=== PATIENT | female | born 1945 | race Caucasian/White ===

== ENCOUNTER 2019-12-19 08:26 | Outpatient (REF) | payer MEDICARE, OTHER, SELFPAY | END 2019-12-19 08:27 | disposition home or self-care (01) | LOC: HO.LAB 08:26 | PROVIDERS: PCP Internal Medicine; Visit Provider Internal Medicine | DX: Z20.828 Contact with and (suspected) exposure to other viral communicable diseases (principal) | CPT/HCPCS: U0003 ==

== ENCOUNTER 2020-01-06 07:11 | Outpatient (REF) | payer MEDICARE, OTHER, SELFPAY ==
[2020-01-06 07:38] LABS: MANUAL DIFF FLAG NO
[2020-01-06 07:40] LABS: Basophils Percent Auto 0.5 % (0-2); Eosinophils Absolute Auto 0.1 X10*3/uL (0.0-0.4); Hematocrit 36.8 % (37-47); Hemoglobin 12.1 g/dl (12.0-16.0); Imm Gran Abs Auto 0.02 X10*3/uL (0.00-0.03); Imm Gran Pct Auto 0.3 % (0.0-0.4); Lymphocytes Absolute Auto 1.8 X10*3/uL (1.2-4.9); Lymphocytes Percent Auto 28.5 % (20-40); Mean Corpuscular HGB Conc 32.9 g/dl (31.0-35.0); Mean Corpuscular Hemoglobin 31.1 pg (27.0-33.0); Mean Corpuscular Volume 94.6 fL (80-98); Mean Platelet Volume 8.8 fL (9.4-12.3); Monocytes Absolute Auto 0.5 X10*3/uL (0.1-1.2); Monocytes Percent Auto 7.6 % (2-11); Neutrophils Absolute Auto 3.9 X10*3/uL (2.0-8.3); Neutrophils Percent Auto 62.1 % (45-73); Platelet Count 248 X10*3/uL (160-400); Red Blood Count 3.89 X10*6/uL (4.20-5.50); Red Cell Distribution Width 12.8 % (11.0-16.0); White Blood Count 6.3 X10*3/uL (4.8-10.8)
[2020-01-06 08:02] LABS: Alanine Aminotransferase 12 U/L (0-31); Albumin Level 4.3 g/dL (3.5-5.0); Alkaline Phosphatase 72 U/L (39-117); Anion Gap 12 (12-20); Aspartate Amino Transferase 17 U/L (5-31); Bilirubin Total 0.6 mg/dL (0.0-1.0); Blood Urea Nitrogen 15 mg/dL (9-16); Calcium 9.3 mg/dL (8.4-10.2); Carbon Dioxide 29 mmol/L (22-29); Chloride 104 mmol/L (96-108); Cholesterol 185 mg/dL; Estimated Glomerular Filt Rate > 60; Glucose Fasting 95 mg/dL (60-99); HDL Cholesterol 45 mg/dL; LDL Cholesterol Calculated 105 mg/dl; Potassium 4.6 mmol/l (3.3-5.1); Sodium 140 mmol/L (135-145); Total Protein 7.1 g/dL (6.5-8.0); Triglycerides 175 mg/dL
[2020-01-06 08:25] LABS: Thyroid Stimulating Hormone 2.14 uIU/mL (0.32-4.0); Vitamin D 25-OH Total 43.5 ng/mL (>30)
[2020-01-06 10:39] LABS: Glucose Urine UA NEG (NEG); Leukocyte Esterase Urine TRACE (NEG); Nitrite Urine NEG (NEG); Urine Blood 1+ (NEG); Urine Ketones NEG (NEG); Urine Protein NEG (NEG-TRACE)
[2020-01-06 10:47] LABS: Appearance Urine CLEAR; Color Urine YELLOW
[2020-01-06 11:04] LABS: RBC Urine 0-2 /HPF (0); Squamous Epithelial Cell Urine TRACE /LPF; WBC Urine 0-2 /HPF (0-4)
== END 2020-01-06 07:12 | disposition home or self-care (01) ==
LOC: HO.LAB 07:11
PROVIDERS: Visit Provider Internal Medicine
DX: I10 Essential (primary) hypertension (principal); E04.2 Nontoxic multinodular goiter; E55.9 Vitamin D deficiency, unspecified; R35.1 Nocturia
CPT/HCPCS: 36415; 80053; 80061; 81001; 81003; 82306; 84443; 85025; 87086

== ENCOUNTER 2020-02-08 10:51 | Outpatient (REF) | payer MEDICARE, OTHER, SELFPAY ==
--- NOTE | 2020-02-08 10:55 | MM_ITS ---
EXAMINATION: BONE DENSITOMETRY CLINICAL INDICATION: Asymptomatic menopausal state. COMPARISON: Previous BD dated 08/07/2016 and baseline BD dated 11/09/2006. TECHNIQUE: Using a [employer] DXA System (software version: 13.1) manufactured by [employer], dual-energy x-ray absorptiometry was performed of the lumbar spine and left hip. The images are of good technical quality. Summary results are attached. FINDINGS: AP SPINE L1-L3 (excluding L4): The data of L1-L4 has been changed to exclude the L4 vertebral body, because degenerative changes at this level may cause overestimation of lumbar spine density. Current: BMD 0.978 g/cm2, Z-score 0.0, T-score -1.6, osteopenia, 3.1% decrease from previous, 3.3% decrease from baseline (<5% change is not significant). Prior: BMD 1.009 g/cm2. Baseline: BMD 1.011 g/cm2. LEFT FEMUR, NECK: Current: BMD 0.820 g/cm2, Z-score 0.2, T-score -1.6, osteopenia. Prior: BMD 0.862 g/cm2. Baseline: BMD 0.897 g/cm2. LEFT FEMUR, TOTAL: Current: BMD 0.900 g/cm2, Z-score 0.8, T-score -0.9, normal, 4.3% decrease from previous, 9.5% decrease from baseline (<5% change is not significant). Prior: BMD 0.940 g/cm2. Baseline: BMD 0.994 g/cm2. IDENTIFIED RISK FACTORS: Menopause, osteoporosis. HISTORY OF FRACTURE: Hand. MEDICATIONS: Vitamin D. MM/XR DEXA axial skeleton IMPRESSION: 1. DIAGNOSIS: Osteopenia based on the lowest T-score value of -1.6 in the femoral neck and lumbar spine applying World Health Organization criteria. 2. 10-YEAR FRACTURE RISK PREDICTION, FRAX: Major osteoporotic fracture (clinical spine, forearm, hip or shoulder) 11.4%. Hip fracture 2.4%. 3. Treatment Recommendations: NOF guidelines recommend consideration for treatment in postmenopausal women and men age 50 and older presenting with the following: -A hip or vertebral (clinical or morphometric) fracture. -T-score less than or equal to -2.5 at the femoral neck or spine after appropriate evaluation to exclude secondary causes. -Low bone mass at the hip or spine and a 10-year fracture probability by FRAX of greater than or equal to 3% for hip fracture or greater than or equal to 20% for major osteoporotic fracture based on the [place] adapted WHO algorithm. 4. Other Recommendations: All treatment decisions require clinical judgment and consideration of individual patient factors, including patient preferences, comorbidities, previous drug use, risk factors not captured in the FRAX model (e.g. frailty, falls, vitamin D deficiency, increased bone turnover, interval significant decline in bone density) and possible under or overestimation of fracture risk by FRAX. Additional medical evaluation for secondary cause of low bone mineral density may be appropriate. FUTURE SCAN RECOMMENDATION: People with diagnosed cases of osteoporosis or at high risk for fracture should have regular bone mineral density tests. For patients eligible for Medicare, routine testing is allowed once every 2 years. The testing frequency can be increased to one year for patients who have rapidly progressing disease, those who are receiving or discontinuing medical therapy to restore bone mass, or have additional risk factors.
== END 2020-02-08 10:52 | disposition home or self-care (01) ==
LOC: HO.MAMMO 10:51
PROVIDERS: PCP Internal Medicine; Visit Provider Internal Medicine
DX: N95.9 Unspecified menopausal and perimenopausal disorder (principal)
CPT/HCPCS: 77080

== ENCOUNTER 2020-03-10 13:45 | Outpatient (REF) | payer MEDICARE, OTHER, SELFPAY ==
--- NOTE | 2020-03-10 | MM_ITS ---
EXAMINATION: MM SCREENING DIGITAL BREAST TOMOSYNTHESIS, BILATERAL CLINICAL INFORMATION: Screening. Asymptomatic. The lifetime risk of breast cancer based on the Tyrer-Cuzick Model is 3%. COMPARISON: Mammography: 12/07/2018, 10/26/2017, 10/20/2017, 07/03/2016 TECHNIQUE: Digital breast tomosynthesis is performed in both the craniocaudal and mediolateral oblique views along with computer-aided detection (CAD). Synthesized 2D images are generated from the tomosynthesis. FINDINGS: The breasts are almost entirely fatty (ACR BI-RADS breast composition Category a). Background stromal markings are unremarkable. There are no significant masses, abnormal calcifications, or other abnormalities. There is a 5 mm oil cyst mid lower inner quadrant right breast. Low left axillary tail node is stable. Skin contours are smooth. MM/MM tomosynthesis screening BI IMPRESSION: No significant changes from prior study. ASSESSMENT: BI-RADS 2: Benign RECOMMENDATION: Routine annual mammography screening. This patient's information was entered into a reminder system with a target due date for their next mammogram.
== END 2020-03-10 13:46 | disposition home or self-care (01) ==
LOC: HO.MAMMO 13:45
PROVIDERS: Visit Provider Internal Medicine
DX: Z12.31 Encounter for screening mammogram for malignant neoplasm of breast (principal)
CPT/HCPCS: 77063; 77067

== ENCOUNTER 2021-03-26 10:05 | Outpatient (REF) | payer MEDICARE, OTHER, SELFPAY ==
--- NOTE | ~2021-03-26 | MM_ITS ---
EXAMINATION: MM SCREENING DIGITAL BREAST TOMOSYNTHESIS, BILATERAL CLINICAL INFORMATION: Screening. Asymptomatic. The lifetime risk of breast cancer based on the Tyrer-Cuzick Model is 3%. COMPARISON: Mammography: 03/10/2020, 12/07/2018, 10/26/2017, 10/20/2017 TECHNIQUE: Digital breast tomosynthesis is performed in both the craniocaudal and mediolateral oblique views along with computer-aided detection (CAD). Synthesized 2D images are generated from the tomosynthesis. FINDINGS: The breasts are almost entirely fatty (ACR BI-RADS breast composition Category a). There are no significant masses, abnormal calcifications, or other abnormalities. Background stromal and fibroglandular markings are similar to prior exams. There are no significant changes. MM/MM tomosynthesis screening BI IMPRESSION: No mammographic evidence of malignancy. ASSESSMENT: BI-RADS 1: Negative RECOMMENDATION: Routine annual mammography screening. This patient's information was entered into a reminder system with a target due date for their next mammogram.
== END 2021-03-26 10:06 | disposition home or self-care (01) ==
LOC: HO.MAMMO 10:05
PROVIDERS: PCP Internal Medicine; Visit Provider Internal Medicine
DX: Z12.31 Encounter for screening mammogram for malignant neoplasm of breast (principal)
CPT/HCPCS: 77063; 77067

== ENCOUNTER 2021-04-07 10:43 | Emergency (ER) | payer MEDICARE, OTHER, SELFPAY ==
--- NOTE | ~2021-04-07 | XR_ITS ---
EXAMINATION: LEFT HAND AND WRIST X-RAYS CLINICAL INFORMATION: Fall COMPARISON: Previous left hand x-ray December 2018 TECHNIQUE: 4 views of the left wrist and hand FINDINGS: There is a transverse slightly impacted fracture of the left distal radius. There is slight dorsal angulation seen on the lateral view. The ulnar styloid appears prominent, question related to old trauma versus possible osteochondroma. This is unchanged. The previously identified fracture of the middle phalanx of the third finger appears healed and is no longer seen. There is arthritis at the trapezoid trapezium scaphoid and first LONG-TERM joint and IP joints. There is soft tissue swelling about the wrist. XR/XR hand wrist LT IMPRESSION: Transverse impacted left distal radius fracture.
[2021-04-07 10:45] VITALS: BP 140/85; PULSE 73; RESP 14; TEMP 36.8; O2SAT 97; BMI 28.3
[2021-04-07] MEDS: Ibuprofen 800 MG TABLET PO (11:21)
--- NOTE | 2021-04-07 11:32 | ED.UPPEXIN ---
HPI - Extremity Injury (Upper) General Chief Complaint: Extremity Injury, Upper Stated Complaint: l wrist inj fall Time Seen by Provider: 04/07/21 11:04 Source: patient and family ( at bedside) Mode of arrival: ambulatory Limitations: no limitations History of Present Illness HPI narrative: 76-year-old female presenting to the ED with her who is a retired ER physician presenting to the ED with complaints of left hand/wrist/forearm pain/swelling after she had a mechanical fall when she was walking her dogs prior to arrival and she slipped and fell landing right on her left hand/wrist/forearm. She denies head injury loss of consciousness or prolonged down time. She denies being on any blood thinners. She denies any symptoms prior to the fall. She reports only pain and injury to the left hand/wrist/forearm after the fall otherwise no other symptoms. She denies any neck injury, back injury, chest injury, abdominal injury or any other extremity injury or other injuries complaints or concerns at this time. MD complaint: injury to: left, forearm, wrist and hand Onset (ago): hour(s) (Prior to arrival) Other Extremity Injury: left: hand, wrist and forearm Other injuries: none Place: home and outdoors Severity: moderate Relieving factors: none Exacerbating factors: movement of extremity Context: fall Associated symptoms: denies other symptoms Treatments prior to arrival: cold therapy Related Data Previous Rx's Medication Instructions Recorded acetaminophen 500 mg tablet 1,000 mg PO QID PRN #14 tab 04/07/21 (Tylenol Extra Strength) ibuprofen 800 mg tablet 800 mg PO Q8H PRN #14 tab 04/07/21 tramadol 50 mg tablet 50 mg PO Q8H PRN #14 tab 04/07/21 Allergies Allergy/AdvReac Type Severity Reaction Status Date / Time No Known Allergies Allergy Unverified 11/03/19 16:07 Review of Systems Review of Systems: Constitutional : No Weight loss, No Fever, No Chills, No Night Sweats, No Fatigue, No Malaise ENT/Mouth : No Hearing loss, No Ear Pain, No Nasal Congestion, No Sinus Pain, No Hoarseness, No sore throat, No Rhinorrhea, No Swallowing Difficulty Eyes: No Eye Pain, No Swelling, No Redness, No Foreign Body, No Discharge, No Vision Changes Cardiovascular : No Chest Pain, No SOB, No Dyspnea on Exertion, No Orthopnea, No Edema, No Palpitations Respiratory : No Cough, No Sputum, No Wheezing, No Smoke Exposure, No Dyspnea Gastrointestinal : No Nausea, No Vomiting, No Diarrhea, No Constipation, No abdominal Pain, No Hematochezia, No Melena Genitourinary : no irregular bleeding, No Dysuria, No Urinary Frequency, No Hematuria, No Urinary Incontinence, No Urgency, No Flank Pain, No Urinary Flow Changes, No Hesitancy Musculoskeletal : + joint pain, No Myalgias, No Joint Swelling Skin : No Skin Lesions, No rash Neuro : No Weakness, No Numbness, No Paresthesias, No Loss of Consciousness, No Dizziness, No Headache Psych : No Anxiety/Panic, No Depression, No SI/HI/AH/VH, No Social Issues, Heme/Lymph: No Bruising, No Bleeding,No Lymphadenopathy Endocrine : No Polyuria, No Polydipsia, No Temperature Intolerance Yes all other systems are reviewed and are negative [facility] Past Medical History Attestation statement: The following information was validated with the patient. Social History Social History Advance Directives: Yes Advance Directives Information Provided: Yes Advance Directives on File: No Physical Exam Vital Signs: Vital Signs: Last Vital Signs Temp 98.3 F 04/07/21 10:45 Pulse 73 04/07/21 10:45 Resp 14 04/07/21 10:45 BP 140/85 H 04/07/21 10:45 Pulse Ox 97 04/07/21 10:45 BMI result Body Mass Index 28.3 vital signs have been reviewed as normal and appeared to be correct. Blood pressure normal. Heart rate normal. Respiration rate normal. Temperature normal. Oxygen saturation normal. Appearance: Alert. Oriented X3. No acute distress. Head: Normal external exam. Normocephalic. Atraumatic. No Quijano signs noted. No raccoon eyes noted Eyes: PERRLA. EOMI. Conjunctiva and sclera normal. Eyelids normal. ENT: Pharynx normal. Uvula midline. Moist mucous membranes. Neck: Normal inspection. Neck supple. FROM. No adenopathy. Thyroid Normal. No tracheal deviation noted. No crepitus is noted. No meningeal signs. No neck mass noted. No signs of trauma noted. CVS: Normal heart rate and rhythm. Heart sound normal. Pulses normal throughout. No murmurs/rales/gallops. Respiratory: No respiratory distress. Painless inspiration. Breath sounds normal. No wheezes/rales/rhonchi noted. Chest nontender. No crepitus is noted. No signs of trauma noted. accessory muscle usage noted or decreased air movement noted. No signs of trauma. Abdomen: Soft and nontender. Bowel sounds normal in all 4 quadrants. No distention noted. No organomegaly noted. No visible injury noted. Back: No CVA tenderness. Full range of motion noted. Nontender. No signs of trauma. Patient neuro intact bilaterally and distally on all 4 extremities. Patient's reflexes intact bilaterally and distally on all 4 extremities. No rashes/lesion/induration/fluctuance or signs of infection noted. Skin: Skin warm and dry. Normal skin color. Normal skin turgor. No rashes/lesions/lacerations noted. Extremities: Patient moderate tenderness palpation soft tissue swelling to the left hand at the radial aspect of the wrist and distal aspect of the forearm with mild ecchymosis. No obvious ligamentous or tendon injury noted. No abrasion/foreign body/lacerations or signs infection noted. No streaking noted. No tenderness palpation to the left fingers/elbow or shoulder joint. Otherwise all other Extremities exhibit normal range of motion and nontender. Neuro: Oriented X 3. No motor deficit. No sensory deficit. Reflexes normal. Normal steady gait. No focal neuro deficits noted. CN's II-XII intact bilaterally? Vascular: + radial pulses/+ 2 distal pedal pulses/+2 dorsalis pedis b/l. Normal cap refill. No cyanosis noted to upper extremity nails and lower extremity toes nails. 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 She denies head injury loss of consciousness or prolonged down time. She denies being on any blood thinners. She denies any symptoms prior to the fall. She reports only pain and injury to the left hand/wrist/forearm after the fall otherwise no other symptoms. She denies any neck injury, back injury, chest injury, abdominal injury or any other extremity injury or other injuries complaints or concerns at this time. X-ray obtained revealed a transverse impacted left distal radius fracture. I consulted with Laura sutton orthopedic PA and she recommended placing her in a splint. Will place her in a sugar-tong splint. Will treat symptomatically. Along with instructions follow-up with Dr. Monteiro the hand surgeon within the next 1-2 weeks and to return if any new or worsening symptoms. Patient and at bedside understand and agree to this plan. MDM - Extremity Injury (Upper) Medical Records Attestation: I reviewed the patient's medical records. Imaging Data Left hand and wrist x-ray: Attestation: I personally reviewed and interpreted this imaging study as follows: Radiologist's impression: FINDINGS: There is a transverse slightly impacted fracture of the left distal radius. There is slight dorsal angulation seen on the lateral view. The ulnar styloid appears prominent, question related to old trauma versus possible osteochondroma. This is unchanged. The previously identified fracture of the middle phalanx of the third finger appears healed and is no longer seen. 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 There is soft tissue swelling about the wrist. XR/XR hand wrist LT IMPRESSION: Transverse impacted left distal radius fracture.? Procedures Orthopedic Splinting/Casting Injury #1: Side: left Upper Extremity Injury Location: forearm, wrist and hand Upper Extremity Immobilizer: sugar tong splint Discharge Plan Discharge Clinical Impression: Fall Distal radius fracture, left Qualifiers: Encounter type: initial encounter Fracture type: closed Patient Disposition: Home, Self-Care Instructions: Wrist Fracture in Adults (ED), Fall Prevention (ED) Prescriptions: New ibuprofen 800 mg tablet 800 mg PO Q8H PRN (Reason: pain) Qty: 14 0RF acetaminophen [Tylenol Extra Strength] 500 mg tablet 1,000 mg PO QID PRN (Reason: fever or pain) Qty: 14 0RF tramadol 50 mg tablet 50 mg PO Q8H PRN (Reason: pain) Qty: 14 0RF Rx Instructions: May partially fill upon patient request Referrals: Raul Breen MD [Primary Care Provider] - 2 days Zaida Stoll MD [Physician] - 2 days
== END 2021-04-07 11:47 | disposition home or self-care (01) ==
PROVIDERS: Emergency Provider Emergency Medicine; PCP Internal Medicine
DX: S52.502A Unspecified fracture of the lower end of left radius, initial encounter for closed fracture (principal); W18.30XA Fall on same level, unspecified, initial encounter; Y93.9 Activity, unspecified; Y92.9 Unspecified place or not applicable; Y99.9 Unspecified external cause status; Z79.899 Other long term (current) drug therapy
CPT/HCPCS: 29105; 73110; 73130; 99283

== ENCOUNTER → 2021-04-09 14:11 | Outpatient (BNVA) | payer MEDICARE, OTHER, SELFPAY | PROVIDERS: PCP Internal Medicine; Visit Provider Physician Assistant | DX: S52.502A Unspecified fracture of the lower end of left radius, initial encounter for closed fracture (principal) | CPT/HCPCS: 29125; 99202 ==

== ENCOUNTER 2021-04-11 07:42 | Day surgery (SDC) | payer MEDICARE, OTHER, SELFPAY ==
--- NOTE | 2021-04-10 09:34 | HO.ANESPROP2 ---
Documented by User: Brianna Mercer NP 04/10/21 09:36 HPI - Anesthesia Eval Consult details Narrative: 76yo F for Left Radius Distal Fracture [facility] Active Problems Active Problems: All Active Problems (Updated 04/09/21 @ 14:48 by Eleazar Ballard PA-C) Distal radius fracture, left (Acute) Past Medical History Medical History HLD (hyperlipidemia) HTN (hypertension) Social History Social History Patient Tobacco Use Status: Never used Tobacco Second Hand Smoke Exposure: No Use of substances other than those prescribed or required for medical reasons: No Are you DNR?: No Advance Directives: No Advance Directives Information Provided: Yes Advance Directives on File: No Meds Allergies Allergy/AdvReac Type Severity Reaction Status Date / Time No Known Allergies Allergy Unverified 11/03/19 16:07 Home Medications Medication Instructions Recorded Confirmed Last Taken Type atorvastatin 40 mg tablet 40 mg PO DAILY 04/09/21 04/09/21 Unknown History lisinopril 10 mg tablet 10 mg PO DAILY 04/09/21 04/09/21 Unknown History Exam Exam Date and Time: April 10, [id number] Assessment and Plan Assessment Anesthesia Assessment: Chart Reviewed Documented by User: Rigo Hendrix MD 04/11/21 10:12 [facility] Past Medical History Medical History HLD (hyperlipidemia) HTN (hypertension) Family History Family history of problems with anesthesia: No Surgical History History of Problems with Anesthesia: No Social History Social History Patient Tobacco Use Status: Never used Tobacco Second Hand Smoke Exposure: No Use of substances other than those prescribed or required for medical reasons: No Are you DNR?: No Advance Directives: No Advance Directives Information Provided: Yes Advance Directives on File: No Meds Allergies Allergy/AdvReac Type Severity Reaction Status Date / Time No Known Allergies Allergy Unverified 11/03/19 16:07 Home Medications Medication Instructions Recorded Confirmed Last Taken Type atorvastatin 40 mg tablet 40 mg PO DAILY 04/09/21 04/09/21 Unknown History lisinopril 10 mg tablet 10 mg PO DAILY 04/09/21 04/09/21 Unknown History Exam Airway Mallampati Class: II TM Dist: >3cm Neck ROM: Full Loose/Missing/Broken Teeth: Yes Assessment and Plan Assessment Anesthesia Assessment: Anesthesia Plan Discussed Final Anesthetic Review Family History of Problems with Anesthesia: No History of Problems with Anesthesia: No NPO: Yes ASA Class: II Final Preanesthetic Review: No Changes in Pt Med Stat, Meds/Allgs Chart Reviewed, Consent Obtained/Reviewed and Anes Risks/Benef Reviewed Patient Risk: Low Procedure Risk: Low Anesthetic Plan Anesthetic Plan: GA and Regional Block Disposition: Standard PACU
[2021-04-11] VITALS (7 sets, daily range): BP systolic 132–154; BP diastolic 58–72; PULSE 61–75; RESP 16–18; TEMP 36.2–36.8; O2SAT 94–98; BMI 28.3
--- NOTE | ~2021-04-11 | FL_ITS ---
EXAMINATION: XR FLUOROSCOPY WITH IMAGES CLINICAL INFORMATION: ORIF. COMPARISON: Left hand and wrist 04/07/2021. TECHNIQUE: Fluoroscopy performed by Dr. Zaida Stoll. Fluoroscopy time: 34.8 seconds DAP: [id number] mGy-cm2 Images: 2 FINDINGS: The impacted left distal radial fracture has been stabilized with a dorsal plate and screws with the fracture fragments in satisfactory alignment. The soft tissues are normal. FL/FL guidance in OR IMPRESSION: Impacted left distal radial fracture is in alignment following reduction and placement of left dorsal plate and screws.
[2021-04-11] MEDS: Lactated Ringers 1,000 ML 100 ML IVCONT (08:23)
--- NOTE | 2021-04-11 09:41 | MHC.SHP ---
Pre-Procedural Eval Section A Date of Service: 04/11/21 The patient is an INPATIENT: No Changes since office visit: No Cold of Flu in the past 2 weeks, No New Medical Problems, No Changes in Medication and No Patient answered all questions The History & Physical has been completed within 30 days and I have reviewed it.: Yes Section B Chief Complaint: fracture radius Allergies: Allergies Allergy/AdvReac Type Severity Reaction Status Date / Time No Known Allergies Allergy Unverified 11/03/19 16:07 Plan I have reviewed the history and physical and performed a pertinent physical examination on my patient. No changes have occurred unless specified.
--- NOTE | 2021-04-11 09:42 | P.OP_ITS ---
Operative Note Operative Note Date of Service: 04/11/21 Narrative: Operative Note Narrative: Preop diagnosis: 1. Left Distal radius fracture Postop diagnosis: Same Procedure: 1. Left Distal radius fracture open reduction internal fixation, 2 part intra-articular Surgeon: Zaida Stoll MD Anesthesia: Mac plus regional block Findings: left distal radius fracture Implants: A 3 hole Accu Med volar locking plate, with for X 2.3 mm locking pegs/screws, and 3 3.5 mm cortical screws Tourniquet time: 38 minutes EBL: 5.0 ml Specimen: None Drains: None Complications: None Disposition: Brought to the recovery room in stable condition Plan: Follow-up in 10-14 days for wound check, suture removal and postop radiographs The patient will be placed in either a short-arm cast or a volar wrist splint. Encouraged no lifting of anything heavier than a cell phone. Please encourage active and passive range of motion of the digits. Follow-up at 4-5 weeks postop for repeat radiographs. Indications: The patient is a 76 year old woman with a left intra-articular distal radius fracture with displacement . The risks and benefits of operative treatment, including but not limited to risk of damage to blood vessels, nerves, tendons, infection, recurrence, persistent pain or numbness, incomplete resolution of preoperative symptoms, or need for further surgery were discussed with the patient and they wished to proceed with surgery. Procedure: Once consent was obtained patient was brought back to the operating suite and placed in the operating table in a supine position. A regional block was performed by the anesthesia team. Perioperative antibiotics and anesthesia was administered by the anesthesia team. A tourniquet was applied to the proximal aspect of the left upper extremity and the limb was prepped and draped in a standard surgical fashion. The limb was elevated exsanguinated with Esmarch bandage and the tourniquet inflated to 250 mm of mercury for a total tourniquet time of 38 minutes. The FluoroScan was used throughout the case to assess our reduction, and facilitate implant placement. A gentle closed reduction was 1st performed on the patient's left distal radius fracture. Was assessed radiographically befor e proceeding with the reduction internal fixation. I then made an 8 cm longitudinal incision over the distal aspect of the flexor carpi radialis tendon. The incision was made through the skin to the subcutaneous tissue using a 15. Blade. Then carefully dissected down to flexor carpi radialis tendon she tenotomy scissors. The FCR tendon sheath was then incised longitudinally using tenotomy scissors under direct visualization. The FCR tendon was then retracted ulnarly. I then made a longitudinal incision in the volar forearm fascia through the floor of FCR tendon sheath using tenotomy scissors under direct visualization. I identified the interval between the radial artery and the flexor tendons. This interval was developed further with my index finger, releasing some of the muscular fibers of the flexor pollicis longus. A dull weatlander retractor was then placed. I then created an ulnarly based flap of the pronator quadratus by releasing the radial and distal edges using a 15. Blade. A Cano elevator was used to elevate the pronator quadratus from the volar surface of the distal radius. This then revealed to us our distal radius fracture. An open reduction was then performed on our distal radius fracture. I then placed a short narrow 3 hole Accu Med volar locking plate on the volar surface of the distal radius. I placed a single K-wire through the distal aspect of the plate and into the distal radius. This was assessed using fluoroscopic images. I was satisfied with the placement of our plate. I then placed 4x 2.3 mm locking screws/pegs in the distal aspect of the plate and distal radius by 1st drilling bicortically with a 1.8 mm drill bit, measuring with a depth gauge, and placing the appropriate length locking screws/pegs. The placement of our plate and screws was then assessed again using fluoroscopic images. The once satisfied with the placement of the volar locking plate and screws on the distal aspect of the distal radius, the plate was then reduced to the shaft of the radius. I then placed 3 3.5 mm cortical screws to the proximal aspect of the plate and into the shaft of the radius. This was done by 1st drilling bicortically with a 2.8 mm drill bit, measuring with a depth gauge, and placing the appropriate length screw. Final radiographs were then obtained. The DRUJ was assessed and found to be stable on exam. I was satisfied with our reduction and placement of all implants. At this point the wound was irrigated with normal saline. The pronator quadratus was reduced back over the volar locking plate using some 3-0 Vicryl suture material. The tourniquet was then deflated and hemostasis was obtained with a brief period of local pressure and bipolar monopolar electrocautery. The subcutaneous layer was then reapproximated using some 4-0 Vicryl suture, and the skin edges were reapproximated using some 5 0 Prolene suture. The wound was then infiltrated with some 1% lidocaine with epinephrine postop pain control. A sterile dressing and a short dorsal splint allowing for active flexion and extension of the digits was applied. The patient appears to have tolerated the procedure well and with no complications. All digits were well vascularized conclusion of the case.
== END 2021-04-11 13:04 | disposition home or self-care (01) ==
PROVIDERS: PCP Internal Medicine; Visit Provider Orthopaedic Surgery
PROC: (CPT 25608; principal; 2021-04-11 09:30)
DX: S52.572A Other intraarticular fracture of lower end of left radius, initial encounter for closed fracture (principal); W00.0XXA Fall on same level due to ice and snow, initial encounter; Y93.9 Activity, unspecified; Y92.9 Unspecified place or not applicable; Y99.8 Other external cause status; I10 Essential (primary) hypertension; E78.5 Hyperlipidemia, unspecified; Z79.1 Long term (current) use of non-steroidal anti-inflammatories (NSAID); Z79.899 Other long term (current) drug therapy
CPT/HCPCS: 25608; C1713; C1769; J0690; J1170; J2250; J2405; J3010

== ENCOUNTER 2021-04-24 08:27 | Outpatient (REF) | payer MEDICARE, OTHER, SELFPAY ==
--- NOTE | ~2021-04-24 | XR_ITS ---
EXAMINATION: XR WRIST, LEFT CLINICAL INFORMATION: Pain in the left wrist COMPARISON: 04/07/2021 TECHNIQUE: PA, lateral, and oblique views of the left wrist. FINDINGS: Interval placement of side plate with screws that stabilizes a transverse fracture of the distal radius in anatomic alignment. The fracture line is still visible. No significant manifestations of healing are yet visualized. Unchanged prominence of the ulnar styloid, that may be due to prior trauma. There is distal disuse osteopenia. There is narrowing of the radiocarpal and intercarpal joint spaces. There is subluxation of the first carpometacarpal joint. XR/XR wrist LT min 3V IMPRESSION: Status post open reduction internal fixation of distal radial fracture in anatomic alignment.
== END 2021-04-24 08:28 | disposition home or self-care (01) ==
LOC: HO.HOSX 08:27
PROVIDERS: Visit Provider Orthopaedic Surgery
DX: S52.502D Unspecified fracture of the lower end of left radius, subsequent encounter for closed fracture with routine healing (principal)
CPT/HCPCS: 29075; 73110; 99212

== ENCOUNTER 2021-05-14 09:03 | Outpatient (REF) | payer MEDICARE, OTHER, SELFPAY ==
--- NOTE | ~2021-05-14 | XR_ITS ---
EXAMINATION: XR WRIST, LEFT CLINICAL INFORMATION: Pain COMPARISON: Previous x-ray 04/24/2021 TECHNIQUE: PA, lateral, and oblique views of the left wrist. FINDINGS: There is a plate and screws transfixing the left distal radius fracture. Orthopedic hardware appears intact. Alignment appears unchanged. Fracture line is still seen. There is question of an ulnar styloid fracture. The bones are osteopenic. There are degenerative changes at the first [facility] joint. There is soft tissue swelling. XR/XR wrist LT min 3V IMPRESSION: ORIF of left distal radius fracture.
== END 2021-05-14 09:04 | disposition home or self-care (01) ==
LOC: HO.HOSX 09:03
PROVIDERS: Visit Provider Orthopaedic Surgery
DX: S52.502D Unspecified fracture of the lower end of left radius, subsequent encounter for closed fracture with routine healing (principal)
CPT/HCPCS: 73110; 99212

== ENCOUNTER → 2021-07-02 13:45 | Outpatient (BNVA) | payer MEDICARE, OTHER, SELFPAY | PROVIDERS: PCP Internal Medicine; Visit Provider Orthopaedic Surgery | DX: S52.502D Unspecified fracture of the lower end of left radius, subsequent encounter for closed fracture with routine healing (principal) | CPT/HCPCS: 99212 ==

== ENCOUNTER 2022-02-11 08:46 | Outpatient (REF) | payer MEDICARE, OTHER, SELFPAY ==
--- NOTE | ~2022-02-11 | MM_ITS ---
EXAMINATION: BONE DENSITOMETRY CLINICAL INDICATION: Menopause. COMPARISON: Previous BD dated 02/08/2020 and baseline BD dated 11/09/2006. TECHNIQUE: Using a [employer] DXA System (software version: 13.1) manufactured by [employer], dual-energy x-ray absorptiometry was performed of the lumbar spine and left hip. The images are of good technical quality. Summary results are attached. FINDINGS: AP SPINE L1-L4: Current: BMD 0.992 g/cm2, Z-score 0.0, T-score -1.6, osteopenia, 5.5% decrease from previous, 9.5% decrease from baseline (<5% change is not significant). Prior: BMD 1.050 g/cm2. Baseline 01/04/2010: BMD 1.096 g/cm2. LEFT FEMUR, NECK: Current: BMD 0.858 g/cm2, Z-score 0.6, T-score -1.3, osteopenia. Prior: BMD 0.820 g/cm2. Baseline: BMD 0.897 g/cm2. LEFT FEMUR, TOTAL: Current: BMD 0.945 g/cm2, Z-score 1.2, T-score -0.5, normal, 5.0% increase from previous, 4.9% decrease from baseline (<5% change is not significant). Prior: BMD 0.900 g/cm2. Baseline: BMD 0.994 g/cm2. IDENTIFIED RISK FACTORS: Menopause, osteoporosis, low calcium intake, history of fracture (adult). HISTORY OF FRACTURE: Wrist. MEDICATIONS: Calcium, vitamin D. MM/XR DEXA axial skeleton IMPRESSION: 1. DIAGNOSIS: Osteopenia based on the lowest T-score value of -1.6 in the lumbar spine applying World Health Organization criteria. 2. 10-YEAR FRACTURE RISK PREDICTION, FRAX: Major osteoporotic fracture (clinical spine, forearm, hip or shoulder) 17.1%. Hip fracture 3.0%. 3. Treatment Recommendations: NOF guidelines recommend consideration for treatment in postmenopausal women and men age 50 and older presenting with the following: -A hip or vertebral (clinical or morphometric) fracture. -T-score less than or equal to -2.5 at the femoral neck or spine after appropriate evaluation to exclude secondary causes. -Low bone mass at the hip or spine and a 10-year fracture probability by FRAX of greater than or equal to 3% for hip fracture or greater than or equal to 20% for major osteoporotic fracture based on the [place] adapted WHO algorithm. 4. Other Recommendations: All treatment decisions require clinical judgment and consideration of individual patient factors, including patient preferences, comorbidities, previous drug use, risk factors not captured in the FRAX model (e.g. frailty, falls, vitamin D deficiency, increased bone turnover, interval significant decline in bone density) and possible under or overestimation of fracture risk by FRAX. Additional medical evaluation for secondary cause of low bone mineral density may be appropriate. FUTURE SCAN RECOMMENDATION: People with diagnosed cases of osteoporosis or at high risk for fracture should have regular bone mineral density tests. For patients eligible for Medicare, routine testing is allowed once every 2 years. The testing frequency can be increased to one year for patients who have rapidly progressing disease, those who are receiving or discontinuing medical therapy to restore bone mass, or have additional risk factors.
== END 2022-02-11 08:47 | disposition home or self-care (01) ==
LOC: HO.MAMMO 08:46
PROVIDERS: PCP Internal Medicine; Visit Provider Internal Medicine
DX: Z13.820 Encounter for screening for osteoporosis (principal); Z78.0 Asymptomatic menopausal state; S62.102S Fracture of unspecified carpal bone, left wrist, sequela
CPT/HCPCS: 77080

== ENCOUNTER 2022-04-01 09:37 | Outpatient (REF) | payer MEDICARE, OTHER, SELFPAY ==
--- NOTE | ~2022-04-01 | MM_ITS ---
EXAMINATION: MM SCREENING DIGITAL BREAST TOMOSYNTHESIS, BILATERAL CLINICAL INFORMATION: Screening. Asymptomatic. The lifetime risk of breast cancer based on the Tyrer-Cuzick Model is 2%. COMPARISON: Mammography: 03/26/2021, 03/10/2020, 12/07/2018, 10/20/2017 TECHNIQUE: Digital breast tomosynthesis is performed in both the craniocaudal and mediolateral oblique views along with computer-aided detection (CAD). Synthesized 2D images are generated from the tomosynthesis. FINDINGS: The breasts are almost entirely fatty (ACR BI-RADS breast composition Category a). There are no significant masses, abnormal calcifications, or other abnormalities. Background stromal markings are similar to prior studies. The axilla are unremarkable. No significant changes. MM/MM tomosynthesis screening BI IMPRESSION: No mammographic evidence of malignancy. ASSESSMENT: BI-RADS 1: Negative RECOMMENDATION: Routine annual mammography screening. This patient's information was entered into a reminder system with a target due date for their next mammogram.
== END 2022-04-01 09:38 | disposition home or self-care (01) ==
LOC: HO.MAMMO 09:37
PROVIDERS: Visit Provider Internal Medicine
DX: Z12.31 Encounter for screening mammogram for malignant neoplasm of breast (principal)
CPT/HCPCS: 77063; 77067

== ENCOUNTER 2023-04-03 09:14 | Outpatient (REF) | payer MEDICARE, OTHER, SELFPAY | END 2023-04-03 09:15 | disposition home or self-care (01) | LOC: HO.MAMMO 09:14 | PROVIDERS: PCP Internal Medicine; Visit Provider Internal Medicine | DX: Z12.31 Encounter for screening mammogram for malignant neoplasm of breast (principal) | CPT/HCPCS: 77063; 77067 ==

== ENCOUNTER → 2023-04-03 09:15 | Outpatient (BNV) | payer MEDICARE, OTHER, SELFPAY | PROVIDERS: PCP Internal Medicine; Visit Provider Radiology Diagnostic Radiology | DX: Z12.31 Encounter for screening mammogram for malignant neoplasm of breast (principal) | CPT/HCPCS: 77063; 77067 ==

== ENCOUNTER 2024-04-08 08:54 | Outpatient (REF) | payer MEDICARE, OTHER, SELFPAY ==
--- OUTSIDE RECORDS SUMMARY | 2024-04-08 09:15 | XMS_ITS | Patient Health Record ---
Author Organization [facility] Address [address] [place] [address] Care Team Providers Care Setter Induction Heating Equipment Name Role Phone Raul Breen MD Primary Care Provider Chino Evans Jr Unavailable [phone] ALLERGIES No Known Allergies REASON FOR REFERRAL No Information MEDICATIONS Medication SIG (Take, Route, Frequency, Duration) Notes Start Date End Date Status Calcium 1 tab Oral for 14 days Active Vitamin D 1000 UNIT 1 tablet Orally Once a day Active Atorvastatin Calcium 40 MG 1 tablet Oral ly Once a day Active Lisinopril 10 MG 1 tablet Orally Once a day Active CoQ-10 30 MG 1 capsule with a mary jane l Orally Once a day Active IMMUNIZATIONS Vaccine Route Administration Date Status Comme nts Flu vaccine no Preserv 3 and > Unknown 10/30/2016 Admin istered Influenza Unknown 12/17/2022 Administered SOCIAL HISTORY Sex Assigned At : Social History Observation Description Sex Assigned At Unknown PROBLEMS Problem Type ICD Code Onset Dates Problem Status W/U Status Risk SNOMED Code Notes Problem Colon cancer screening (Z12.11) Active confirmed 840916683 Problem Personal history of colonic polyps (Z86.010) Active confirmed 123304606 Problem roasterman (current) use of aspirin (Z79.82) Active confirmed 838664237 Problem Hypertension, unspecified type (I10) Active confirmed 03001500 Problem Family history of colonic polyps (Z83.719) Active confirmed 236696617 PLAN OF TREATMENT Future Test Test Name Order Date COLONOSCOPY 06/18/2012 COLONOSCOPY 08/26/2017 Insurance Providers Payer Name Payer Address Payer Phone Subscriber Number Group Number Insured Name Patient Relationship to Insured Coverage Start Date Coverage End Date MEDICARE OF [place] [address] [place] [address] [id number] CARMELA LOPEZ Self - patient is the insured [facility] [address] [place] [address] [id number] JOHNBRENDAIA Self - patient is the insured MEDICAL (GENERAL) HISTORY Medical History History ICD Code Hyperlipidemia Hypertension Colon polyps, colonoscopy , limited but negative for polyps, five-year followup diverticulosis Surgical History Surgery Date(Month/Year) ORIF left radial fracture 04/09
--- OUTSIDE RECORDS SUMMARY | 2024-04-08 09:15 | XMS_ITS ---
Author Organization [facility] Address [address] [place] [address] Care Team Providers Care Charge Authorizer Name Role Phone Raul Breen MD Primary Care Provider Chino Evans Jr ALLERGIES No Known Allergies REASON FOR VISIT Patient presents today for a recall colonoscopy MEDICATIONS Medication SIG (Take, Route, Frequency, Duration) Notes Start Date End Date Status Atorvastatin Calcium 40 MG 1 tablet Oral ly Once a day Active Lisinopril 10 MG 1 tablet Orally Once a day Active CoQ-10 30 MG 1 capsule with a mary jane l Orally Once a day Active Calcium 1 tab Oral for 14 days Active Vitamin D 1000 UNIT 1 tablet Orally Once a day Active PROBLEMS Problem Type ICD Code Onset Dates Problem Status W/U Status Risk SNOMED Code Notes Problem Personal history of colonic polyps (Z86.010) Active confirmed 645111736 Problem Family history of colonic polyps (Z83.719) Active confirmed 010117730 VITAL SIGNS BMI 23.58 kg/m2 12/31/2022 Blood pressure systolic 000 mm Hg 01/01/20 23 Blood pressure diastolic 00 mm Hg 023 Height 67.5 in 12/31/2022 Temperature 98.0 degrees Fahrenheit 01/01/20 23 Weight 152.8 lbs 12/31/2022 Encounters Encounter Location Date Provider Diagnosis [facility] [address] [place] [address] 12/31/2022 Chino Barton Jr Colon cancer screening Z12.11 ; Personal history of colonic polyps Z86.010 and Family history of colonic polyps Z83.719 ASSESSMENTS Encounter Date Diagnosis Assessment Notes Treatment Notes Treatment Clinical Notes 12/31/2022 Colon cancer screening (ICD-10 - Z12.11) Colonoscopy material was printed 12/31/2022 Personal history of colonic polyps (ICD-10 - Z86.010) 12/31/2022 Family history of colonic polyps (ICD-10 - Z83.719) PLAN OF TREATMENT Treatment Notes Assessment Notes Colon cancer screening Colonoscopy mater ial was printed Next Appt Details Follow Up: prn, Reason: Progress Notes * Examination Category Sub-Category Detail Notes General Examination GENERAL APPEARANCE: in no ac yajaira distress HEAD: normocephalic EYES: sclera non-icteric NECK/THYROID: no lymphadenopathy HEART: S1, S2 normal, no mu rmurs CHEST: normal shape and exp ansion LUNGS: clear to auscultatio n bilaterally ABDOMEN: soft, nontender, non distended, bowel sounds present, no organomegaly SKIN: anicteric EXTREMITIES: no clubbing, cyanosi s, or edema PSYCH: cognitive function i ntact ORAL CAVITY: mucosa moist
== END 2024-04-08 08:55 | disposition home or self-care (01) ==
LOC: HO.MAMMO 08:54
PROVIDERS: PCP Internal Medicine; Visit Provider Internal Medicine
DX: Z12.31 Encounter for screening mammogram for malignant neoplasm of breast (principal)
CPT/HCPCS: 77063; 77067

== ENCOUNTER → 2024-04-08 09:00 | Outpatient (BNV) | payer MEDICARE, OTHER, SELFPAY | PROVIDERS: PCP Internal Medicine; Visit Provider Internal Medicine | DX: Z12.31 Encounter for screening mammogram for malignant neoplasm of breast (principal) | CPT/HCPCS: 77063; 77067 ==

== ENCOUNTER 2024-08-17 08:24 | Outpatient (REF) | payer MEDICARE, OTHER, SELFPAY ==
--- NOTE | ~2024-08-17 | MM_ITS ---
EXAMINATION: DXA BONE DENSITY AXIAL HISTORY: M85.89 TECHNIQUE: [employer] Dual energy absorptiometry (DEXA) of the lumbar spine, total left hip, and femoral neck was performed. COMPARISON: Comparison is made with the prior examination dated 02/11/2022. FINDINGS: The bone mineral density of the lumbar spine is 1.125 g/cm2, corresponding to a T-score of -0.5, and a Z-score of 1.2. This is indicative of normal bone mineral density. This represents a BMD change of 13.4% compared to the prior exam. This is statistically significant. The bone mineral density of the left total hip is 0.906 g/cm2, corresponding to a T-score of -0.8, and a Z-score of 1.0. This is indicative of normal bone mineral density. This represents a BMD change of -4.1% compared to the prior exam. This is statistically significant. The bone mineral density of the left femoral neck is 0.785 g/cm2, corresponding to a T-score of -1.8, and a Z-score of 0.2. This is indicative of osteopenia. This represents a BMD change of -8.5% compared to the prior exam. FRACTURE RISK: The FRAX index suggests a ten year probability of major osteoporotic fracture of 21.2%, and of hip fracture 5.2%. MM/XR DEXA axial skeleton IMPRESSION: Based on bone mineral density, and according to World Health Organization (WHO) criteria, the diagnosis is consistent with osteopenia. Statistically, 68% of repeat scans fall within 1 SD (+/- 0.010 g/cm2 for AP spine L1-L4) and 1 SD (+/- 0.012 g/cm2 for femur total) FRAX is a trademark of the [employer]'s [place] [employer] Met[employer] Bone [employer], a World Health Organization (WHO) Collaborating Center. Electronically signed by: Tom Jacinto MD 08/18/2024 07:00 AM EDT
--- OUTSIDE RECORDS SUMMARY | 2024-08-17 08:27 | XMS_ITS | Patient Health Record ---
Author Organization [facility] Address [address] [place] [address] Care Team Providers Care Marzipan Maker Name Role Phone Raul Breen MD Primary Care Provider Chino Evans Jr Unavailable [phone] Allergies No Known Allergies Reason For Referral No Information Medications Medication SIG (Take, Route, Frequency, Duration) Notes [...] jane l Orally Once a day Active Immunizations Vaccine Route Administration Date Status Comme nts Flu vaccine no Preserv 3 and > Unknown 10/30/2016 Admin istered Influenza Unknown 12/17/2022 Administered Problems Problem Type SNOMED Code ICD Code Onset Dates Problem Status W/U Status Risk Notes Problem [id number] Colon cancer screening (Z12.11) Active confirmed Problem 669233690 Personal history of colonic polyps (Z86.010) Active confirmed Problem 206693800 intermediate (current) use of aspirin (Z79.82) Active confirmed Problem 13228643 Hypertension, unspecified type (I10) Active confirmed Problem 659792932 Family history of colonic polyps (Z83.719) Active confirmed Plan Of Treatment Future Test Test Name Order Date COLONOSCOPY 06/18/2012 COLONOSCOPY 08/26/2017 Insurance Providers Payer Name Payer Address Payer Phone Subscriber Number Group Number Insured Name Patient Relationship to Insured Coverage Start Date Coverage End Date MEDICARE OF [address] [place] [address] [id number] CARMELA LOPEZ Self - patient is the insured [facility] [address] [place] [address] [phone] [id number] CARMELA LOPEZ Self - patient is the insured Medical (General) History Medical History History ICD Code Hyperlipidemia Hypertension Colon polyps, colonoscopy , limited but negative for polyps, five-year followup diverticulosis Surgical History Surgery Date(Month/Year) ORIF left radial fracture 04/09
== END 2024-08-17 08:25 | disposition home or self-care (01) ==
LOC: HO.MAMMO 08:24
PROVIDERS: PCP Internal Medicine; Visit Provider Internal Medicine Endocrinology, Diabetes & Metabolism
DX: Z13.820 Encounter for screening for osteoporosis (principal); M85.89 Other specified disorders of bone density and structure, multiple sites
CPT/HCPCS: 77080

== ENCOUNTER → 2024-08-17 08:45 | Outpatient (BNV) | payer MEDICARE, OTHER, SELFPAY | PROVIDERS: PCP Internal Medicine; Visit Provider Radiology Diagnostic Radiology | DX: E28.39 Other primary ovarian failure (principal) | CPT/HCPCS: 77080 ==